=== PATIENT | female | born 1960 | race Caucasian/White ===

== ENCOUNTER 2020-09-27 07:08 | Day surgery (SDC) | payer OTHER ==
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
--- OUTSIDE RECORDS SUMMARY | 2020-09-27 07:12 | XMS REPORT | Continuity of Care Document ---
:1960 Author Organization [facility] Address [address] [place] [address] Care Team Providers Name Role Phone Unavailable Unavailable Unavailable Problems This patient has no known problems. Allergies, Adverse Reactions, Alerts Allergy Allergy Status Severity Reaction(s) Onset Inactive Treating Comm ents Source Name Type Date Date Clinician codeine Adverse Active rash vomting [facility] MORPHINE Adverse Active rash, [facility] Medications Ordered Filled Start Stop Current Ordering Indication Dosage Frequency Signature Comments Components Source Medication Medication Date Date Medication? Clinician (SIG) Name Name Haley De Leon 2018-08 Yes Brenda [address] [facility] [place] [facility] Selenium Selenium Yes Brenda [address] [place] [facility] DiphenhydrA DiphenhydrA Yes Brenda [address] [facility] MINE HCl MINE HCl [place] as [facility] Ibuprofen Ibuprofen Yes Brenda [address] [facility] [place] with food [facility] or milk as [facility] Vitamin D3 Vitamin D3 Yes Brenda as [facility] [place] [facility] Vitamin C Vitamin C Yes Brenda [address] [facility] [place] [facility] Procedures This patient has no known procedures. Encounters Start End Encounter Admission Attending Care Care Encounter Source Date/Time Date/Time Type Type Clinicians Facility Department ID 2020-08-09 2020-08-09 Out[facility] [id number] [facility] 2020-05-08 2020-05-08 [facility] [id number] [facility] 10[facility]20[facility] 10[facility]20[facility]00 [facility] 2019-09-06 2019-09-06 [facility] [id number] [facility] 09[facility]48[facility]00 09:48:00 [facility] 2019-08-11 2019-08-11 [facility] [id number] [address] 09:[facility] 09[facility]00 [facility] 2019-07-15 2019-07-15 [facility] [id number] [facility] 11[facility]00 [facility] Results This patient has no known results.
[2020-09-27] MEDS ORDERED: Ringers Lactate 1,000 ML IV ONE (07:59)
[2020-09-27 08:00] VITALS: O2SAT 100
[2020-09-27] MEDS ORDERED: propofoL 200 MG/20 ML VIAL IV ONE (09:03)
[2020-09-27] MEDS ORDERED: LIDOCAINE 1% MPF 5 ML VIAL ONE (09:15)
--- NOTE | 2020-09-27 10:07 | ENDO RPT ---
[address], [address] COLONOSCOPY PROCEDURE REPORT EXAM DATE: 09/27/2020 PATIENT NAME: Gigi Briones MR #: [id number] BIRTHDATE: 1960 ATTENDING: [place] DR STATUS: outpatient FLOOR REFINISHER: Tano Root and Adrianna Salazar RN INDICATIONS: The patient is a 60 yr old Female here for a colonoscopy due to colon cancer screening PROCEDURE PERFORMED: Colonoscopy with biopsy MEDICATIONS: Per Anesthesia. ESTIMATED BLOOD LOSS: None CONSENT: The patient understands the risks and benefits of the procedure and understands that these risks include, but are not limited to: sedation, allergic reaction, infection, perforation and/or bleeding. Alternative means of evaluation and treatment include, among others: physical exam, x-rays, and/or surgical intervention. The patient elects to proceed with this endoscopic procedure. DESCRIPTION OF PROCEDURE: During intra-op preparation period all mechanical medical equipment was checked for proper function. Hand hygiene and appropriate measures for infection prevention was taken. Procedure, possible complications, alternatives including, but not limited to possibility of bleeding, perforation, tear, infection, sepsis, need for surgery, need for blood transfusion, were explained to the patient. After the risks, benefits and alternatives of the procedure were thoroughly explained, Informed consent was verified, confirmed and timeout was successfully executed by the treatment team. The patient was placed in the left lateral position. A digital rectal exam was performed and revealed internal hemorrhoids. After appropriate level of anesthesia, the scope was passed. The [id number] ([id number]) endoscope was introduced through the anus and advanced to the cecum, which was identified by both the appendix and ileocecal valve. The quality of the prep was poor. The instrument was then slowly withdrawn as the colon was fully examined. Scope withdrawal time was 10 minutes. COLON FINDINGS: Multiple small non-bleeding, round, shallow and clean-based ulcers, measuring 1 x 1mm in size, were found throughout the entire examined colon. Biopsies were taken at the center of the ulcers. Retroflexed views revealed small hemorrhoids. The scope was then completely withdrawn from the patient and the procedure terminated. ADVERSE EVENTS: There were no complications. IMPRESSIONS: Multiple small ulcers, measuring 1 x 1mm in size, were found throughout the entire examined colon; biopsies were taken RECOMMENDATIONS: 1. avoid NSAIDS for 2 weeks 2. await biopsy results 3. fiber rich diet 4. follow-up: office 2 week(s) 5. Monitor for any evidence of rectal bleeding. 6. hemorrhoidal hygiene 7. yearly hemoquant 8. increase dietary water RECALL: for Colonoscopy, pending biopsy results. [place] DR eSigned: [place] DR 09/27/2020 10:07 AM cc: CPT CODES: ICD9 CODES: PATIENT NAME: Gigi Briones MR#: [id number]
[2020-09-27 10:26] VITALS: TEMP 98.3
[2020-09-27 10:44] VITALS: BP 109/65
== END 2020-09-27 10:55 | disposition home or self-care (01) ==
LOC: PRE 07:08
PROVIDERS: ATTEND Surgery
PROC: 0DBL8ZX Excision of Transverse Colon, Via Natural or Artificial Opening Endoscopic, Diagnostic (ICD-10-PCS; principal; 2020-09-27 09:15)
DX: Z12.11 Encounter for screening for malignant neoplasm of colon (principal); K63.89 Other specified diseases of intestine
CPT/HCPCS: 88305; 45380; J2704; J7120